=== PATIENT | male | born 1990 | race Caucasian/White ===

== ENCOUNTER 2019-01-22 15:53 | Emergency (ER) | payer MEDICAID ==
[~2019-01-22] VITALS: Ht 180.3 cm; Wt 82.4 kg
[~2019-01-22 15:53] MED LIST: CEPH-571 PO
[2019-01-22 16:11] VITALS: BP 157/91
[2019-01-22] MEDS ORDERED: LIDOcaine 1% w/epiNEPHrine 1:200,000 30ml vial IM ONE (16:45)
[2019-01-22] MEDS ORDERED: bacitracin 15gm ointment TP ONE (16:45)
[2019-01-22] MEDS ORDERED: TETanus/Pertussis (Acell)/Diphther VAC/PF (Tdap-Adult) 0.5ml syringe IM ONE (16:45)
[2019-01-22] MEDS ORDERED: HYDROcodone/acetaminophen 10/325mg tab PO ONE (17:15)
[2019-01-22] MEDS ORDERED: CEPH250T PO (17:36)
== END 2019-01-22 18:13 | disposition home or self-care (01) ==
LOC: ER 15:54
DX: S61.311A Laceration without foreign body of left index finger with damage to nail, initial encounter (principal); Z88.6 Allergy status to analgesic agent; W27.8XXA Contact with other nonpowered hand tool, initial encounter; Y93.89 Activity, other specified; Y92.89 Other specified places as the place of occurrence of the external cause; Y99.8 Other external cause status
CPT/HCPCS: 73140; 90471; 90715; 99283; J3490